=== PATIENT | male | born 1965 | race American Indian/Alaskan Native ===

== ENCOUNTER 2016-08-22 08:43 | Inpatient (IN) | payer OTHER ==
[2016-08-22 09:28] LABS: Basophils % (Auto) 0.6 % (0.0-1.8); Eosinophils % (Auto) 0.5 % (0.0-4.3); Hematocrit 43.2 % (35.5-45.6); Hemoglobin 14.5 gm/dl (11.8-15.2); Mean Corpuscular HGB Conc 34 % (32-34); Mean Corpuscular Volume 76 fl (84-94); Platelet Count 134 K/mm3 (140-440); Red Blood Count 5.68 M/mm3 (3.65-5.03); Red Cell Distribution Width 13.9 % (13.2-15.2); White Blood Count 9.8 K/mm3 (4.5-11.0)
[2016-08-22 09:31] LABS: Anion Gap 14 mmol/L; BUN/Creatinine Ratio 8.33; Blood Urea Nitrogen 10 mg/dL (9-20); Calcium 8.7 mg/dL (8.4-10.2); Carbon Dioxide 27 mmol/L (22-30); Chloride 103.7 mmol/L (98-107); Glucose 103 mg/dL (75-100); Mean Corpuscular Hemoglobin 26 pg (28-32); Sodium 141 mmol/L (137-145)
[2016-08-22] MEDS ORDERED: CATAPRES PO ONE (17:59)
[2016-08-22] MEDS ORDERED: ASPIRIN PO ONE (17:59)
--- NOTE | 2016-08-22 18:00 | Emergency Department Report ---
ED Chest Pain HPI - General Chief Complaint: Chest Pain Stated Complaint: CHEST PAIN Time Seen by Provider: 08/22/16 17:37 Source: patient Mode of arrival: Ambulatory Limitations: No Limitations - History of Present Illness Initial Comments: 50-year-old male with a past medical history of elevated blood pressure presents to the hospital with complaints of elevated blood pressure and chest pain for 3 days. Patient states he does not have a primary care doctor and is not currently on blood pressure medication. Last time his blood pressure was checked was 2 years ago and it was elevated at that time but he never started medication or followed up with the physician. She complains of intermittent anterior chest pain. Pain is in the sternal area radiating into the left parasternal area. Pain described as sharp, intermittent but more constant at this time. Pain is rated 8/10 in intensity. Worse with deep inspiration and movement and certain positions. Patient denies nausea, vomiting, shortness of breath, recent travel, calf tenderness, edema, tobacco use, previous cardiac workup. Father of [place] at age 52 Severity scale (0 -10): 7 - Related Data Home Medications Medication Instructions Recorded Confirmed Last Taken No Known Home Medications [No 08/22/16 08/22/16 Unknown Reported Home Medications] Allergies Allergy/AdvReac Type Severity Reaction Status Date / Time No Known Allergies Allergy Unverified 08/22/16 08:54 PAULA score - Paula Score Age > 65: (0) No Aspirin use within the Past 7 Days: (0) No 3 or more CAD Risk Factors: (1) Yes 2 or more Angina events in past 24 hrs: (0) No Known CAD with more than 50% Stenosis: (0) No Elevated Cardiac Markers: (0) No ST Deviation Greater than 0.5mm: (0) No PAULA Score: 1 ED Review of Systems ROS: Stated complaint: CHEST PAIN Other details as noted in HPI Comment: All other systems reviewed and negative Other: Constitutional: No fevers chills Eyes: No eye pain visual changes ENT: No ear pain or throat pain Neck: Denies pain Respiratory: Denies cough wheezing shortness of breath Cardiovascular: as per hpi GI: Denies abdominal pain, nausea, vomiting, diarrhea : Denies dysuria Musculoskeletal: Denies back pain Skin: Denies rash, lesions, erythema Neurologic: Denies headache, numbness, weakness Psychiatric: Denies suicidal ideation, hallucinations ED Past Medical Hx - Past Medical History Previous Medical History?: No - Surgical History Past Surgical History?: No - Social History Smoking Status: Never Smoker Substance Use Type: None - Medications Home Medications: Home Medications Medication Instructions Recorded Confirmed Last Taken Type No Known Home Medications [No 08/22/16 08/22/16 Unknown History Reported Home Medications] ED Physical Exam - General Limitations: No Limitations - Other Other exam information: General: No limitations, patient is alert in no acute distress Head exam: Atraumatic, normocephalic Eyes exam: Normal appearance ENT: Moist mucous membrane, normal oropharynx Neck exam: Normal inspection, full range of motion, no meningismus nontender Respiratory exam: Clear to auscultation bilateral, no wheezes, rales, crackles, no tenderness Cardiovascular: Normal rate and rhythm, normal heart sounds Abdomen: Soft, nondistended, and nontender, with normal bowel sounds, no rebound, or guarding Extremity: Full range of motion normal inspection no deformity or tenderness or edema Back: Normal Inspection, full range of motion, no tenderness Neurologic: Alert, oriented x3, cranial nerves intact, no motor or sensory deficit Psychiatric: normal affect, normal mood Skin: Warm, dry, intact ED Course Vital Signs 08/22/16 08/22/16 08/22/16 08:54 17:51 17:53 Temperature 99.1 F 99.9 F H Pulse Rate 93 H 92 H Respiratory 18 24 24 Rate Blood Pressure 193/108 Blood Pressure 217/103 [Left] O2 Sat by Pulse 99 100 100 Oximetry 08/22/16 08/22/16 18:11 18:54 Temperature Pulse Rate 98 H 89 Respiratory 24 18 Rate Blood Pressure Blood Pressure 197/100 198/98 [Left] O2 Sat by Pulse 97 97 Oximetry - Reevaluation(s) Reevaluation #1: 08/22/16 18:10 Clonidine 0.2 mg aspirin ordered ED Medical Decision Making - Lab Data Result diagrams: 08/22/16 09:01 08/22/16 09:01 Lab Results 08/22/16 08/22/16 08/22/16 Range/Units 09:01 09:01 12:13 WBC 9.8 (4.5-11.0) K/mm3 RBC 5.68 H (3.65-5.03) M/mm3 Hgb 14.5 (11.8-15.2) gm/dl Hct 43.2 (35.5-45.6) % MCV 76 L (84-94) fl MCH 26 L (28-32) pg MCHC 34 (32-34) % RDW 13.9 (13.2-15.2) % Plt Count 134 L (140-440) K/mm3 Lymph % (Auto) 11.0 L (13.4-35.0) % [place] % (Auto) 8.8 H (0.0-7.3) % Eos % (Auto) 0.5 (0.0-4.3) % Baso % (Auto) 0.6 (0.0-1.8) % Lymph # 1.1 L (1.2-5.4) K/mm3 [place] # 0.9 H (0.0-0.8) K/mm3 Eos # 0.1 (0.0-0.4) K/mm3 Baso # 0.1 (0.0-0.1) K/mm3 Seg Neutrophils % 79.1 H (40.0-70.0) % Seg Neutrophils # 7.7 (1.8-7.7) K/mm3 Sodium 141 (137-145) mmol/L Potassium 4.0 (3.6-5.0) mmol/L Chloride 103.7 (98-107) mmol/L Carbon Dioxide 27 (22-30) mmol/L Anion Gap 14 mmol/L BUN 10 (9-20) mg/dL Creatinine 1.2 (0.8-1.5) mg/dL Estimated GFR > 60 ml/min BUN/Creatinine Ratio 8.33 % Glucose 103 H (75-100) mg/dL Calcium 8.7 (8.4-10.2) mg/dL Troponin T < 0.010 < 0.010 (0.00-0.029) ng/mL 08/22/16 Range/Units 15:08 WBC (4.5-11.0) K/mm3 RBC (3.65-5.03) M/mm3 Hgb (11.8-15.2) gm/dl Hct (35.5-45.6) % MCV (84-94) fl MCH (28-32) pg MCHC (32-34) % RDW (13.2-15.2) % Plt Count (140-440) K/mm3 Lymph % (Auto) (13.4-35.0) % [place] % (Auto) (0.0-7.3) % Eos % (Auto) (0.0-4.3) % Baso % (Auto) (0.0-1.8) % Lymph # (1.2-5.4) K/mm3 [place] # (0.0-0.8) K/mm3 Eos # (0.0-0.4) K/mm3 Baso # (0.0-0.1) K/mm3 Seg Neutrophils % (40.0-70.0) % Seg Neutrophils # (1.8-7.7) K/mm3 Sodium (137-145) mmol/L Potassium (3.6-5.0) mmol/L Chloride (98-107) mmol/L Carbon Dioxide (22-30) mmol/L Anion Gap mmol/L BUN (9-20) mg/dL Creatinine (0.8-1.5) mg/dL Estimated GFR ml/min BUN/Creatinine Ratio % Glucose (75-100) mg/dL Calcium (8.4-10.2) mg/dL Troponin T < 0.010 (0.00-0.029) ng/mL - EKG Data -: EKG Interpreted by Me (sinus rhythm no T-wave inversion) - EKG Data When compared to previous EKG there are: previous EKG unavailable - Radiology Data Radiology results: image reviewed (cxr: naf) - Medical Decision Making Pt will be admitted to the hospital for further workup and evaluation of chest pain and untreated hypertension. Pt has 3 sets of negative cardiac enzymes. Clonidine aspirin given in the ED - Differential Diagnosis mi, unstable angina, pe, dissection, musculoskeletal chest pain Critical Care Time: No Critical care attestation.: If time is entered above; I have spent that time in minutes in the direct care of this critically ill patient, excluding procedure time. ED Disposition Clinical Impression: Chest pain, Uncontrolled hypertension Disposition: OP ADMITTED IP TO THIS HOSP Is pt being admited?: Yes Does the pt Need Aspirin: Yes Condition: Stable Time of Disposition: 18:00 (Dr Hein/hosp)
--- NOTE | 2016-08-22 18:16 | Admit Criteria Form ---
Admission Criteria Documentation: CARDIOLOGY GRG Clinical Indications for Admission to Inpatient Care ( Place 'X' for any and all applicable criteria): Hospital admission is needed for appropriate care of the patient because of ANY ONE of the following (1): [ ] I. Hemodynamic instability as indicated by ALL of the following (1)(2)(3) (4)(5) [ ]a) Vital signs or other findings not as expected for chronic patient condition or baseline [ ]b) Instability indicated by ANY ONE of the following: [ ]i) Hypotension [ ]ii) Symptomatic Tachycardia unresponsive to treatment ( e.g., analgesia, fluids, sedation as indicated) [ ]iii) Inadequate perfusion indicated by ANY ONE of the following: [ ] 1) Lactic acidosis (> 2 mmol/L) [ ] 2) New abnormal capillary refill (> 3 seconds) [ ] 3) Reduced urine output [ ] 4) New altered mental status [ ]iv) Orthostatic vital sign changes unresponsive to treatment (e.g., fluids) [ ]v) IV inotropic or vasopressor medication required to maintain adequate blood pressure or perfusion [ ] II. Severe heart failure as indicated by ANY ONE of the following(17)(18) [ ]a) Respiratory distress [ ]b) Hypotension [ ]c) Anasarca (refractory to outpatient therapy) [ ]d) Cardiac arrhythmias of immediate concern [ ]e) Myocardial ischemia [ ] III. Cardiac arrhythmias or findings of immediate concern indicated by ANY ONE of the following (19)(20): [ ] a) Heart rhythms that are inherently dangerous or unstable indicated by ANY ONE of the following (21)(22)(23): [ ] i) Resuscitated ventricular fibrillation or cardiac arrest [ ] ii) Ventricular escape rhythm [ ] iii) Sustained ventricular tachycardia (30 seconds or more of ventricular rhythm at greater than 100 beats per minute) [ ] iv) Nonsustained ventricular tachycardia and ANY ONE of the following: [ ] 1) Suspected cardiac ischemia as cause or consequence of ventricular tachycardia [ ] 2) In setting of acute myocarditis [ ] b) Unstable cardiac conduction defects indicated by ANY ONE of the following(23)(24)(25) [ ] i) Type II second-degree atrioventricular block [ ]ii) Third-degree atrioventricular block [ ]iii) New-onset left bundle branch block with suspected myocardial ischemia [ ]c) Any heart rhythm and ANY ONE of the following (21)(22)(26)(27) (28) [ ] i) Continuous long-term ECG monitoring needed (e.g., initiation of drug requiring monitoring for more than 24 hours) [ ] ii) Patient has automatic implanted cardioverter defibrillator that is repeatedly firing, malfunctioning, or in need of immediate adjustment of settings beyond the scope of ambulatory or observation care [ ]d) Heart rhythms of concern due to ANY ONE of the following: [ ] i) Hypotension [ ] ii) Respiratory distress [ ] iii) Association with other significant symptoms (e.g., bradycardia with syncope or ongoing dizziness, supraventricular tachycardia with chest pain (14)(15)(17) [ ] IV. Monitoring for cardiac contusion beyond the scope of observation care needed [A](30)(31)(32) [ ] V. Surgical or device complication (e.g., valve replacement complication , pacemaker dysfunction) (35)(41)(44)(45)(46) [ ] . Inpatient palliative care needed. [B](49) Also use Inpatient Palliative Care Criteria [ ] VII. Nonbacterial thrombotic (marantic) endocarditis (36)(43)(47)(48) [ X] VIII. Cardiology condition, symptom, or finding for which emergency and observation care has failed or are not considered appropriate. [ ] IX. Acute valvular disease requiring inpatient as indicated by ANY ONE of the following (41) [ ]a) Acute valvular regurgitation (42) [ ]b) Noninfectious valvulitis (43) [ ]c) Obstructive valve thrombosis [ ]d) Paravalvular leak [ ]e) Other significant valvular disorder remaining after emergency or observation level of care (as appropriate) [ ]X. Pericardial disease requiring inpatient treatment as indicated by ANY ONE of the following (33)(34)(35)(36)(37) [ ]a) Suspected tamponade (38)(39)(40) [ ]b) Hemopericardium [ ]c) Other significant pericardial disorder remaining after emergency or observation level of care (as appropriate) [ ] XI. Cardiac ischemia beyond scope of emergency and observation care. [ ] XII. Hypertension requiring inpatient treatment as indicated by ANY ONE of the following (6)(7)(8) [ ]a) SBP greater than 220 mm Hg or DBP greater than 120 mmHg despite treatment [ ]b) SBP greater than 140 mm Hg or DBP greater than 100 mm Hg with evidence of acute end organ damage as indicated by ANY ONE of the following [ ] i) Altered mental status [ ] ii) Acute renal failure as indicated by new onset of ANY ONE of the following (9)(10)(11)(12)(13) [ ]1) 3-fold rise in serum creatinine from baseline [ ]2) Serum creatinine greater than 4 mg/dL ( 354 micromoles/L) with acute rise greater than 0.5 mg/dL (44.2 micromoles/L) [ ]3) Reduction of more than 75% in estimated glomerular filtration rate from baseline [ ]4) Estimated glomerular filtration rate less than 35 mL/min/1.73m2 (0.59 mL/sec/1.73m2) in child up to 18 years of age [ ]5) Cessation of urine output indicated by ALL of the following [ ]A. Adequate volume status [ ]B. Inadequate urine output as indicated by ANY ONE of the following [ ]a. Urine output less than 0.3 mL/kg/hr for 24 hours [ ]b. Anuria (urine output less than 0.1 mL/kg/hr) for 12 hours [ ] iii) Aortic dissection [ ] iv) Myocardial Ischemia [ ] v) Left ventricular heart failure [ ]vi) Retinal Hemorrhage [ ]vii) Other significant finding [ ]c) Hypertension in child requiring inpatient treatment as indicated by ALL of the following(14)(15)(16) [ ] i) Outpatient treatment not effective, not available, or not appropriate [ ]ii) SBP or DBP greater than 95th percentile for age [ ]iii) Evidence of acute end organ damage as indicated by ANY ONE of the following [ ]1) Altered mental status [ ]2) Acute renal failure as indicated by new onset of ANY ONE of the following(9)(10)(11)(12)(13) [ ]A. 3-fold rise in serum creatinine from baseline [ ]B. Serum creatinine greater than 4 mg/dL (354 micromoles/L) with acute rise greater than 0.5 mg/dL (44.2 micromoles/L) [ ]C. Reduction of more than 75% in estimated glomerular filtration rate from baseline [ ]D. Estimated glomerular filtration rate less than 35 mL/min/1.73m2 (0.59 mL/sec/1.73m2) in child up to 18 years of age [ ]E. Cessation of urine output indicated by ALL of the following [ ]a. Adequate volume status [ ]b. Inadequate urine output as indicated by ANY ONE of the following [ ]i) Urine output less than 0.3 mL/kg/hr for 24 hours [ ]ii) Anuria ( urine output less than 0.1 mL/kg/hr) for 12 hours [ ]3) Severe headache [ ]4) Visual disturbance [ ]5) Retinal hemorrhage [ ]6) Other significant finding [ ]XIII. Complications of transplanted heart indicated by ANY ONE of the following(61): [ ]a) Acute graft rejection requiring inpatient management (eg, intravenous immunosuppression)(62)(63) [ ]b) Acute graft heart failure indicated by ANY ONE of the following(64): [ ]i) Hemodynamic instability [ ]ii) Cardiac arrhythmias of immediate concern [ ]iii) Pulmonary edema that is very severe (eg, mechanical ventilation needed, imminent or likely, need for 100% oxygen to keep oxygen saturation above 90%) [ ]iv) Pulmonary edema that is persistent as indicated by ALL of the following: [ ]1) New need for oxygen therapy to keep oxygen saturation above 90% (or increased FiO2 need from baseline) [ ]2) Has not improved sufficiently with emergency department or observation care IV diuretics or other heart failure treatments[E] [ ]v) Altered mental status that is severe or persistent [ ]vi) Increased creatinine (new on laboratory test) with reduction of more than 50% in estimated glomerular filtration rate from baseline [ ]vii) Progressively (ongoing) rising creatinine (known from past laboratory test) with reduction of more than 25% in estimated glomerular filtration rate from baseline [ ]viii) Acute renal failure [ ]ix) Acute peripheral ischemia (eg, examination shows pulseless, cool, mottled, or cyanotic extremity) [ ]x) Pulmonary artery catheter monitoring needed [ ]xi) Other sign or symptom of heart failure requiring inpatient treatment (ie, too severe or not responsive to outpatient and observation care treatment) [ ]c) Infection requiring inpatient management (eg, Hemodynamic instability, need for intravenous antimicrobial treatment)(66)(67)(68)(69)(70) [ ]d) Cardiac allograft vasculopathy requiring inpatient management ( eg evidence of cardiac ischemia)(71) [ ]e) Other complication of transplanted heart (eg, stroke, severe pulmonary hypertension, severe valvular dysfunction) requiring inpatient management(72) The original [facility] content created by [employer] has been revised. The portions of the content which have been revised are identified through the use of italic text or in bold, and [facility] has neither reviewed nor approved the modified material. All other unmodified content is copyright [facility] [employer]. Please see references footnoted in the original [facility] [employer] edition 2016 Admission Criteria Met: Yes
[2016-08-22] MEDS ORDERED: APRESOLINE ONE (18:53)
[2016-08-22] MEDS ORDERED: MILK OF MAGNESIA PO PRN (18:56)
[2016-08-22] MEDS ORDERED: DULCOLAX PR PRN (18:56)
[2016-08-22] MEDS ORDERED: APRESOLINE IV ONE (18:56)
[2016-08-22] MEDS ORDERED: TYLENOL PO PRN (18:56)
[2016-08-22] MEDS ORDERED: ZOFRAN IV PRN (18:56)
[2016-08-22] MEDS ORDERED: MORPHINE IV PRN (18:56)
--- NOTE | 2016-08-22 18:58 | History and Physical Report ---
History of Present Illness Date of examination: 08/22/16 Chief complaint: chest pain Medications and Allergies Allergies Allergy/AdvReac Type Severity Reaction Status Date / Time No Known Allergies Allergy Unverified 08/22/16 08:54 Home Medications Medication Instructions Recorded Confirmed Last Taken Type No Known Home Medications [No 08/22/16 08/22/16 Unknown History Reported Home Medications] Exam - Constitutional Vitals: Temp Pulse Resp BP Pulse Ox 99.9 F H 89 18 198/98 97 08/22/16 17:51 08/22/16 18:54 08/22/16 18:54 08/22/16 18:54 08/22/16 18:54 Results - Labs CBC & Chem 7: 08/23/16 04:58 08/23/16 04:58 Labs: Abnormal lab results 08/22/16 08/22/16 Range/Units 09:01 09:01 RBC 5.68 H (3.65-5.03) M/mm3 MCV 76 L (84-94) fl MCH 26 L (28-32) pg Plt Count 134 L (140-440) K/mm3 Lymph % (Auto) 11.0 L (13.4-35.0) % [place] % (Auto) 8.8 H (0.0-7.3) % Lymph # 1.1 L (1.2-5.4) K/mm3 [place] # 0.9 H (0.0-0.8) K/mm3 Seg Neutrophils % 79.1 H (40.0-70.0) % Glucose 103 H (75-100) mg/dL Assessment and Plan Chest pain. Admit to Tele. Stress test in am
[2016-08-22] MEDS: NORVASC PO SCH (21:21)
[2016-08-22] MEDS: LOVENOX SUB-Q SCH (21:22)
[2016-08-22] MEDS ORDERED: APRESOLINE PO SCH (22:00)
[2016-08-22] MEDS ORDERED: NACL ONE (23:23)
--- NOTE | 2016-08-23 00:40 | XRay Report ---
FINAL REPORT EXAM: CT ANGIO CHEST HISTORY: chest pain, elevated d-dimer COMPARISON: None available. TECHNIQUE: Contiguous axial images were obtained. Additional sagittal and coronal reformatted images were obtained. Administration of IV contrast given per institution protocol. Images submitted for interpretation. 100 cc Omnipaque [id number]. FINDINGS: Heart normal in size. Thoracic aorta normal in caliber. No pulmonary embolus. No pathologically enlarged intrathoracic or axillary lymph nodes. There are few prominent hilar lymph nodes likely reactive. For example there is a right infrahilar lymph node measuring 8 x 5 millimeters in axial dimension. Trace left-sided pleural effusion. Nonspecific linear opacities at the lung bases and mild septal thickening concerning for mild edema versus atelectasis. Tracheobronchial tree remains patent. Visualized upper abdomen is grossly unremarkable. Mild degenerative changes of the thoracic spine IMPRESSION: No pulmonary embolus. Trace left-sided pleural effusion nonspecific linear densities and mild septal thickening at the lung bases concerning for mild atelectasis versus edema. Infectious process less likely.
[2016-08-23 05:47] LABS: Basophils % (Auto) 0.5 % (0.0-1.8); Eosinophils % (Auto) 0.4 % (0.0-4.3); Hematocrit 40.8 % (35.5-45.6); Hemoglobin 13.8 gm/dl (11.8-15.2); Mean Corpuscular HGB Conc 34 % (32-34); Mean Corpuscular Volume 76 fl (84-94); Platelet Count 130 K/mm3 (140-440); Red Blood Count 5.37 M/mm3 (3.65-5.03); Red Cell Distribution Width 13.8 % (13.2-15.2)
[2016-08-23 05:50] LABS: Mean Corpuscular Hemoglobin 26 pg (28-32)
[2016-08-23 06:07] LABS: Anion Gap 17 mmol/L; BUN/Creatinine Ratio 12.72; Blood Urea Nitrogen 14 mg/dL (9-20); Calcium 8.4 mg/dL (8.4-10.2); Carbon Dioxide 26 mmol/L (22-30); Chloride 104.4 mmol/L (98-107); Glucose 107 mg/dL (75-100); Sodium 143 mmol/L (137-145)
[2016-08-23] MEDS ORDERED: LEXISCAN IV ONE ×2 (08:45→09:00)
[2016-08-23] MEDS: LOVENOX SUB-Q SCH (11:54)
[2016-08-23] MEDS: NORVASC PO SCH (11:54)
[2016-08-23] MEDS: TENORMIN PO SCH (11:54)
--- NOTE | 2016-08-23 14:10 | Progress Note ---
Hospitalist Physical - Constitutional Vitals: Temp Pulse Resp BP Pulse Ox 98.4 F 90 18 154/74 94 08/23/16 13:23 08/23/16 13:23 08/23/16 13:23 08/23/16 13:23 08/23/16 13:23 Results - Labs CBC & Chem 7: 08/23/16 04:58 08/23/16 04:58 Labs: Laboratory Last Values WBC 9.0 K/mm3 (4.5-11.0) 08/23/16 04:58 RBC 5.37 M/mm3 (3.65-5.03) H 08/23/16 04:58 Hgb 13.8 gm/dl (11.8-15.2) 08/23/16 04:58 Hct 40.8 % (35.5-45.6) 08/23/16 04:58 MCV 76 fl (84-94) L 08/23/16 04:58 MCH 26 pg (28-32) L 08/23/16 04:58 MCHC 34 % (32-34) 08/23/16 04:58 RDW 13.8 % (13.2-15.2) 08/23/16 04:58 Plt Count 130 K/mm3 (140-440) L 08/23/16 04:58 Lymph % (Auto) 14.4 % (13.4-35.0) 08/23/16 04:58 [place] % (Auto) 13.4 % (0.0-7.3) H 08/23/16 04:58 Eos % (Auto) 0.4 % (0.0-4.3) 08/23/16 04:58 Baso % (Auto) 0.5 % (0.0-1.8) 08/23/16 04:58 Lymph # 1.3 K/mm3 (1.2-5.4) 08/23/16 04:58 [place] # 1.2 K/mm3 (0.0-0.8) H 08/23/16 04:58 Eos # 0.0 K/mm3 (0.0-0.4) 08/23/16 04:58 Baso # 0.0 K/mm3 (0.0-0.1) 08/23/16 04:58 Seg Neutrophils % 71.3 % (40.0-70.0) H 08/23/16 04:58 Seg Neutrophils # 6.4 K/mm3 (1.8-7.7) 08/23/16 04:58 D-Dimer 419.55 ng/mlDDU (0-234) H 08/22/16 19:28 Sodium 143 mmol/L (137-145) 08/23/16 04:58 Potassium 4.0 mmol/L (3.6-5.0) 08/23/16 04:58 Chloride 104.4 mmol/L (98-107) 08/23/16 04:58 Carbon Dioxide 26 mmol/L (22-30) 08/23/16 04:58 Anion Gap 17 mmol/L 08/23/16 04:58 BUN 14 mg/dL (9-20) 08/23/16 04:58 Creatinine 1.1 mg/dL (0.8-1.5) 08/23/16 04:58 Estimated GFR > 60 ml/min 08/23/16 04:58 BUN/Creatinine Ratio 12.72 % 08/23/16 04:58 Glucose 107 mg/dL (75-100) H 08/23/16 04:58 Calcium 8.4 mg/dL (8.4-10.2) 08/23/16 04:58 Troponin T < 0.010 ng/mL (0.00-0.029) 08/22/16 15:08
[2016-08-23] MEDS: APRESOLINE IV PRN (22:43)
--- NOTE | 2016-08-23 23:01 | Treadmill Report ---
INDICATION: Chest pain. ORDERING PHYSICIAN: Hubert Hein MD FINDINGS: There is no scintigraphic evidence of myocardial ischemia. There is a small fixed inferior wall defect likely due to shadowing from the adjacent GI, liver uptake. The left ventricular ejection fraction is normal. There is normal wall motion and wall thickening. CONCLUSION: 1. No scintigraphic evidence of myocardial ischemia. 2. There is a small fixed inferior wall defect noted both on the rest and stress imaging due to shadowing from the adjacent GI and liver uptake. 3. ejection fraction measured at 50% with normal wall motion and wall thickening. 4. This is a low risk myocardial perfusion scan associated with a cardiovascular mortality of less than 1% in the next 1 year. JOB# [id number] LUAN/IVAN
[2016-08-24] MEDS ORDERED: NORVASC PO SCH (03:36)
--- NOTE | 2016-08-24 07:41 | Discharge Summary ---
Providers - Providers Date of Admission: 08/22/16 18:56 Date of discharge: 08/24/16 Attending physician: ZEKE GOINS Primary care physician: CHON CAMPUZANO MD Hospitalization Condition: Good Disposition: DISCHARGED TO HOME OR SELFCARE - Discharge Diagnoses (1) Hypertensive emergency Status: Acute (2) Chest pain Status: Acute Qualifiers: Chest pain type: C (3) GERD (gastroesophageal reflux disease) Status: Acute Qualifiers: Esophagitis presence: E Core Measure Documentation - Palliative Care Palliative Care/ Comfort Measures: Not Applicable - Core Measures Any of the following diagnoses?: none Exam - Constitutional Vitals: Temp Pulse Resp BP Pulse Ox 98.4 F 73 20 154/78 97 08/24/16 04:20 08/24/16 04:20 08/24/16 04:20 08/24/16 04:20 08/24/16 04:20 Plan Activity: no restrictions Diet: low fat, low cholesterol, low salt Additional Instructions: 1.Follow up with [facility] in 1 week Follow up with: PRIMARY CARE, [Primary Care Provider] - 3-5 Days Prescriptions: amLODIPine [Norvasc] 10 mg PO DAILY #30 tablet Atenolol [Tenormin] 25 mg PO QDAY #30 tablet
[2016-08-24] MEDS: LOVENOX SUB-Q SCH (09:30)
[2016-08-24] MEDS: TENORMIN PO SCH (09:30)
[2016-08-24] MEDS: APRESOLINE IV PRN (12:15)
[2016-08-24 12:16] VITALS: BP 177/84
== END 2016-08-24 16:00 | disposition home or self-care (01) | DRG 305 ==
LOC: ED 08:43 → 4A 18:56
PROVIDERS: ADMIT Internal Medicine; ATTEND Internal Medicine
DX: I16.0 Hypertensive urgency (principal); R07.9 Chest pain, unspecified; K21.9 Gastro-esophageal reflux disease without esophagitis
CPT/HCPCS: 36415; 71020; 71275; 78452; 80048; 84484; 85025; 85379; 93005; 93010; 93017; 96374; A9502; J0360; J1650; J2785; Q9967